=== PATIENT | male | born 1950 | race Caucasian/White ===

== ENCOUNTER → 2017-05-11 | Outpatient (CLI) | payer MEDICARE ==
[2017-05-11 14:02] LABS: Blood Urea Nitrogen 33 mg/dL (9-20); Non-African American GFR(MDRD) >60 (>60 ml/min/1.73 sqM)
--- NOTE | 2017-05-11 14:48 | CT ---
EXAMINATION TYPE: CT angio chest DATE OF EXAM: 05/11/2017 COMPARISON: PET/CT dated 08/25/2015. CT neck and chest dated 08/04/2016. HISTORY: cough and sob 1 week post op hernia repair. History of carcinoma of the tongue. CT DLP: 224.3 mGycm. Automated Exposure Control for Dose Reduction was Utilized. CONTRAST: CTA scan of the thorax is performed with IV Contrast, patient injected with 66 mL of Omnipaque 350, p ulmonary embolism protocol. MIP Images are created on CT scanner and reviewed. FINDINGS: LUNGS: Innumerable nodular opacities are seen throughout the lungs, most confluent within the lower l obes. These are surrounded by areas of groundglass opacity and interlobular septal thickening. The ri ght lung is slightly greater affected than the left. Within the consolidations in the posterior basil ar segments of both lungs pulmonary arteries run through these consolidations unaffected, and therefo re no mass is thought to be present within these areas. Additionally there are areas of low density t he numerous consolidations representing either nonenhancing areas of infection or necrosis. MEDIASTINUM: There is satisfactory enhancement of the pulmonary artery and its branches, there is no CT evidence for pulmonary embolism. Corresponding to the numerous consolidations there is mediastinal and hilar adenopathy with the largest conglomeration of lymph nodes seen in the right hilum measurin g 1.6 cm. OTHER: Numerous hypoattenuated hepatic lesions have developed in the interim with only a single hepat ic lesions seen on the prior exam of 08/04/2016. The lesion within the posterior medial right lobe of the liver previously measured approximate 3.7 cm on that examination and now measures up to 6.4 cm. When measured in a similar plane the low density left adrenal gland has not changed in size. A small gastroesophageal hiatal hernia and left paracentral bulge and diverticulum are seen. Small area of sc lerosis is seen at the superior endplate of T3, likely degenerative. Other mild degenerative changes are seen of the visualized thoracic spine. IMPRESSION: 1. Innumerable pulmonary nodular opacities throughout both lungs, with a lower lobe predominance. The se may represent infectious/inflammatory etiology or neoplastic etiology. Recommendation is for short -term follow-up after treatment. There is underlying concern for neoplasm as numerous hepatic masses have developed in the interim. These are incompletely characterized and dynamic contrast-enhanced CT (liver mass protocol) or MRI are recommended for further characterization. 2. Stable left adrenal nodule, which can be further assessed on the above recommended examination. A [place] message has been communicated to Magdi Woodson DO via the [employer] system on 05/11/2017 2:46 PM, Message ID [id number].
== END | disposition home or self-care (01) ==
LOC: RADCTMAIN 11:34
PROVIDERS: ATTEND Family Medicine
DX: R91.8 Other nonspecific abnormal finding of lung field (principal); R06.02 Shortness of breath; Z98.890 Other specified postprocedural states
CPT/HCPCS: 82565; 84520; 71275; 36415; Q9967

== ENCOUNTER → 2017-05-11 | Outpatient (CLI) | payer MEDICARE ==
--- NOTE | 2017-05-11 11:16 | XR ---
EXAMINATION TYPE: XR chest 2V DATE OF EXAM: 05/11/2017 COMPARISON: Nuclear medicine PET/CT 08/25/[address] chest 08/04/2016 HISTORY: Shortness of breath TECHNIQUE: Frontal and lateral views of the chest are obtained. FINDINGS: There is been interval development of bilateral basilar airspace disease, airspace disease also suspected right upper lobe. Prominent lung volumes may be indicative of underlying COPD. No leonor dent pneumothorax or pleural effusion. Cardiac mediastinal silhouette, pulmonary vascularity and jorge within normal limits. IMPRESSION: Correlate for pneumonia, consider aspiration. Follow-up is recommended. A Yellow message has been communicated to Magdi Woodson DO via the [employer] system on 05/11/2017 11:12 AM, Message ID [id number].
== END | disposition home or self-care (01) ==
LOC: RADXRYALE 10:00
PROVIDERS: ATTEND Family Medicine
DX: R06.02 Shortness of breath (principal)
CPT/HCPCS: 71020

== ENCOUNTER → 2017-06-02 | Outpatient (CLI) | payer MEDICARE ==
[2017-06-02 14:34] LABS: Blood Urea Nitrogen 25 mg/dL (9-20); Non-African American GFR(MDRD) >60 (>60 ml/min/1.73 sqM)
--- NOTE | 2017-06-02 16:29 | CT ---
EXAMINATION TYPE: CT chest abdomen w con DATE OF EXAM: 06/02/2017 INDICATION: Liver lesion, Pulmonary nodule, history of throat cancer COMPARISON: NONE CT DLP: 1190 mGycm CONTRAST: Performed without Oral Contrast and with IV Contrast, patient injected with 100 mL of Omnipaque 300. TECHNIQUE: Axial images at 5 mm thick sections. Reconstructed images in the coronal plane. Delayed images through the kidneys. FINDINGS: CT CHEST: Portion of the thyroid visualized is normal. There is a density in the anterior right upper lobe measuring 1.7 x 0.7 cm. Small pretracheal lymph n ode is present upper lobe. Series 3 image 22.There is a 1.3 x 0.8 cm nodular density in the periphery of the right posterior lateral left and right lung small nodules are present measuring 0.5 cm on the right and 0.7 cm left posterior lateral. Series 3 image 32. Bilateral posterior consolidations are present. This could be related to pulmonary fibrosis as well. Neoplasm is not excluded. Pneumonia should be considered. Multiple additional areas of pneumonitis ar e identified on the lung windows. No enlarged mediastinal or hilar adenopathy is evident. The ascending aorta diameter at the level of the main pulmonary artery is 3.4 cm. The main pulmonary artery diameter at the bifurcation is 2.5 cm. Coronary artery calcifications present. CT ABDOMEN: Liver: There is a 3.9 cm hypodensity within the right lobe liver measuring 15 Hounsfield units. Cyst is within the differential. A small daughter cyst measuring 0.9 cm posterior. There is a large irregu lar hypodense mass in the inferior right lobe liver measuring 6.5 cm. Underlying mass should be suspe cted. Additional hypodensities in the medial left lobe liver measuring 1.7 cm. Spleen: Normal Pancreas: Normal Adrenal glands: Left adrenal gland is thickened at 1.4 cm previous smaller than the comparison. Right adrenal gland appears normal Gallbladder: Normal Kidneys: No masses are evident. No hydronephrosis is present. Tiny cortical renal cysts on the post erior lateral left mid kidney. Delayed images were obtained through the kidneys, which remain unrema rkable. Aorta: Vascular calcification is within the aorta. There is minimal 2.4 cm distal fusiform prominenc e the distal abdominal aorta. Inferior vena cava: Normal. CT PELVIS: Loops of bowel within the abdomen and pelvis are normal. There are loops of bowel which are incom pletely distended or lack oral contrast limiting their evaluation. Appendix: Normal as visualized. IMPRESSIONS: 1. Lung nodules within the right upper lobe has diminished in size over the interval. The density con solidations in the right and left posterior lung base is likewise have diminished over the interval. 2. Hepatic hypodensities appear similar to prior study.
== END | disposition home or self-care (01) ==
LOC: RADCTMAIN 13:16
PROVIDERS: ATTEND Family Medicine
DX: J18.1 Lobar pneumonia, unspecified organism (principal); R91.8 Other nonspecific abnormal finding of lung field; K76.9 Liver disease, unspecified
CPT/HCPCS: 82565; 84520; 71260; 74160; 36415; Q9967

== ENCOUNTER → 2017-08-21 | Outpatient (CLI) | payer MEDICARE ==
--- NOTE | 2017-08-21 12:45 | CT ---
EXAMINATION TYPE: CT abdomen pelvis w con DATE OF EXAM: 08/21/2017 COMPARISON: 06/02/2017 HISTORY: Tongue CA, Lt leg muscle weakness CT DLP: 703.1 mGycm Automated exposure control for dose reduction was used. TECHNIQUE: Helical acquisition of images was performed from the lung bases through the pelvis. CONTRAST: Performed with Oral Contrast and with IV Contrast, patient injected with 100 mL of Omnipaque 300. FINDINGS: LUNG BASES: Bibasilar reticular opacities are seen dependently within the posterior basilar segment o f the lower lobes, more nodular and confluent on the left. These appear slightly improved in comparis on to the prior exam. 3 mm pulmonary nodules also seen within the right middle lobe on series 4 image 4. LIVER/GB: Enlarging hepatic masses suspicious for metastasis are seen within the right hepatic lobe t hat are multilobulated and centrally fluid attenuated indicative of necrosis with soft tissue compone nt of the mass within segment 8. This mass is increased in size previously measuring 3.9 cm and now m easuring 4.5 x 6.2 cm. Mass within the inferior right hepatic lobe in segments 5 and 6 is also enlarg ed measuring 6.5 cm on the prior examination currently measuring 8.1 x 7.8 cm. 4.9 cm left hepatic lo be lesion has also increased from the prior as it measured 1.7 cm. Additional lesion near the fissure for the falciform ligament within segment IVb has also enlarged now measuring 1.5 cm and previously subcentimeter. Punctate calculi are seen within the gallbladder body and neck. Necrotic adenopathy is seen within th e chiquis hepatis with the largest lymph node measuring 1.3 cm in short axis. PANCREAS: No significant abnormality is seen. SPLEEN: No significant abnormality is seen. ADRENALS: Stable left adrenal gland 1.4 cm nodule is noted. Right adrenal gland is unremarkable. KIDNEYS: Subcentimeter left lower pole renal cyst is unchanged. Otherwise kidneys enhance symmetrical ly without evidence of hydronephrosis. FREE AIR: No free air is visualized. ADENOPATHY: Centrally necrotic chiquis hepatis adenopathy as described above in addition to this there is an enlarged portacaval lymph nodes measuring 1.5 cm and 1.0 cm in short axis. Mesenteric implants versus prominent mesenteric lymph nodes are discussed in the mesentery section. URINARY BLADDER: No significant abnormality is seen. OSSEOUS STRUCTURES: 1.4 cm sclerotic lesion is seen of the T9 vertebral body and small area of scler osis within the S1 vertebral body that are suspicious for metastatic disease. Old fracture deformity of the right pelvic bone is noted. Mottled lytic and sclerotic lesion is seen of the left proximal fe mur with age indeterminate fracture of the lesser trochanter. Punctate sclerotic focus within the rig ht femur is thought to be related to benign bone island. Lastly sclerosis is seen within the issue tu berosity on the left, also appearing suspicious for metastasis. BOWEL: Bowel is nonenlarged. Numerous sigmoid diverticula and descending colonic diverticula are see n without pericolonic fat stranding. OTHER: Small hiatal hernia is incidentally noted. Again there is mild fusiform ectasia of the abdomin al aorta measuring up to 2.4 cm distally. Moderate ossific atheromatous changes and noncalcific ather omatous changes are seen of the abdominal aorta and its branches. MESENTERY: New mesenteric nodules are seen in the antimesenteric and mesenteric border of the hepatic flexure seen on series 3 image 34, 36 and 37 measuring up to 6 mm. Additional 6 mm nodular density i s seen on series 3 image 46 along the right hemicolon. These may represent lymph nodes or metastatic mesenteric implants. Another 2 nodular areas along the lateral conal fascia are seen on series 3 imag e 39 and 41. Within the pelvis there is another nodular area in the inguinal region on series 3 image 70. Scattered prominent lymph nodes are also seen in the the mesentery surrounding the sigmoid colon such as on series 3 image 62. IMPRESSION: 1. PROGRESSION OF METASTATIC DISEASE. ENLARGING HEPATIC MASSES MEASURING UP TO 8.1 CM WITH PERIPORTAL AND PORTACAVAL ADENOPATHY. 2. NUMEROUS SUSPICIOUS OSSEOUS LESIONS THAT ARE FAVORED TO RELATE TO METASTATIC FOCI WITH THE LARGEST IN THE PROXIMAL LEFT FEMUR RESULTING IN PATHOLOGIC FRACTURE OF INDETERMINATE AGE OF THE LESSER TUBER OSITY. 3. NUMEROUS MESENTERIC NODULES THAT MAY BE RELATED TO ADENOPATHY OR METASTATIC MESENTERIC INVOLVEMENT /IMPLANTS. GIVEN THE ABOVE CONSTELLATION OF FINDINGS THIS COULD RELATE TO THE PATIENT'S KNOWN HEAD AN D NECK CANCER, HOWEVER THIS WOULD BE MORE TYPICAL FOR COLON CANCER OF MUCINOUS TYPE OR LUNG CANCER. 4. STABLE LEFT ADRENAL GLAND NODULE.
== END | disposition home or self-care (01) ==
LOC: RADCTMAIN 09:53
PROVIDERS: ATTEND Family Medicine
DX: R16.0 Hepatomegaly, not elsewhere classified (principal); R59.0 Localized enlarged lymph nodes; E27.8 Other specified disorders of adrenal gland; C01 Malignant neoplasm of base of tongue; M62.81 Muscle weakness (generalized)
CPT/HCPCS: 74177; 36415; Q9967

== ENCOUNTER 2017-08-28 05:42 | Inpatient (IN) | payer MEDICARE ==
[2017-08-26 09:59] VITALS: BMI 21.9
[~2017-08-28 05:42] MED LIST: ACETAMINOPHEN TAB 500 MG TAB PO ONE; HYDROmorphone 0.5 MG/0.5 ML SYRINGE IVP PRN; LACTATED RINGERS 1,000 ML IV SCH; LIDOCAINE 1% 20 ML VIAL (10MG/ML) FOR IV START INTRADERMA PRN; MELOXICAM 7.5 MG TAB PO ONE; ONDANSETRON 4 MG/2 ML VIAL IVP ONE; TRANEXAMIC ACID 1,000 MG in SODIUM CHLORIDE 0.9% 100 ML IVPB ONE; ceFAZolin IN SWFI 2 GM/20 ML SYRINGE IVP ONE
[2017-08-28] MEDS ORDERED: MIDAZOLAM 2 MG/2 ML VIAL IVP ONE (07:03)
[2017-08-28] MEDS ORDERED: LIDOCAINE 1% INJ 10MG/ML (20 ML MDV) ONE (07:34)
[2017-08-28] MEDS ORDERED: MIDAZOLAM 2 MG/2 ML VIAL ONE (07:34)
[2017-08-28] MEDS ORDERED: HYDROmorphone (PF) 1 MG/ML ONE (07:34)
[2017-08-28] MEDS ORDERED: ePHEDrine SULFATE/0.9% NACL/PF 50 MG/5 ML SYRINGE IV ONE (07:34)
[2017-08-28] MEDS ORDERED: TRANEXAMIC ACID 1,000 MG/10 ML VIAL ONE (07:34)
[2017-08-28] MEDS ORDERED: fentaNYL (PF) 50 MCG/ML 2 ML AMP ONE (07:34)
[2017-08-28] MEDS ORDERED: PHENYLEPHRINE-0.9% NACL SYG 1 MG/10 ML SYRINGE ONE (07:34)
[2017-08-28] MEDS ORDERED: KETAMINE 10 MG/ML 20 ML VIAL ONE (07:34)
[2017-08-28] MEDS ORDERED: PROPOFOL 10 MG/ML 20 ML VIAL IV ONE (07:34)
[2017-08-28] MEDS ORDERED: SODIUM CHLORIDE 0.9% 100 ML BAG ONE (07:34)
[2017-08-28] MEDS ORDERED: LACTATED RINGERS 1,000 ML IV ONE (09:15)
[2017-08-28] MEDS ORDERED: HYDROmorphone 1 MG/ML 1 ML SYRINGE IVP PRN ×3 (09:30)
[2017-08-28] MEDS ORDERED: ONDANSETRON 4 MG/2 ML VIAL IVP PRN (09:30)
[2017-08-28] MEDS ORDERED: NALOXONE 0.4 MG/ML 1 ML VIAL IV PRN (09:30)
[2017-08-28] MEDS ORDERED: TEMAZEPAM 15 MG CAP PO PRN (09:30)
[2017-08-28] MEDS ORDERED: MAGNESIUM HYDROXIDE 2,400 MG/10 ML CUP PO PRN (09:30)
--- NOTE | 2017-08-28 09:43 | P.OP ---
Date of Procedure: 08/28/17 Procedure(s) Performed: PREOPERATIVE DIAGNOSIS: Left proximal femur impending fracture secondary to metastatic cancer POSTOPERATIVE DIAGNOSIS: Left proximal femur impending fracture secondary to metastatic cancer OPERATION: 1. Left femur prophylactic intramedullary nailing using long Synthes IT nail. 2. Bone biopsy SUPERVISOR AUDIT [employer]ERKS: Shelly Villaseñor PA-C (assistance with: Patient positioning, retraction, exposure, reduction, fixation, irrigation, hemostasis, closure, dressing) ANESTHESIA: General ESTIMATED BLOOD LOSS: 200 mL. SPECIMENS REMOVED: None COMPLICATIONS: None OPERATIVE FINDINGS: See below INDICATIONS: Mr. Redmond is a 67-year-old male with a history of remote throat cancer and a lesion in his left proximal femur consistent with metastatic cancer. A computed tomography scan has shown a small fracture involving the lesser trochanter, and there is a moth-eaten appearance on the posteromedial aspect of the proximal femur around the lesser trochanter region. I have recommended prophylactic femoral intramedullary rodding after consultation with Dr. West. The plan is also to obtain a bone biopsy from the reamings. The patient wishes to proceed with the operation after explanation of the steps of the procedure as well as potential risks and complications. These have been explained as being inclusive of, but not limited to: Bleeding, infection, scarring, discomfort, blood vessel and/or nerve damage, blood clot, pulmonary embolism, need for further surgery, gait disturbance, , and other risks. The consent form has been authorized. PROCEDURE: After appropriate consent was obtained, the patient was taken to the operating room and placed in supine position. Spinal anesthetic was administered and after confirmation of adequate anesthesia, the patient was carefully placed in the supine position on the operating room table in the fracture table. The patient was placed up against a well-padded peroneal post. Care was taken to make sure about that all pressure points were adequately padded. The affected leg was placed in boot traction and the unaffected leg was placed in a well leg chadwick. Gentle longitudinal traction was used to stabilize the limb. The thigh was prepped and draped in the usual aseptic fashion using ChloraPrep. Ioban drape was used for the case and the patient received intravenous antibiotics prior to incision. The incision was then created with a #10 blade just proximal to the greater trochanter laterally. It was carried down through skin into the subcutaneous tissues and through fascia. Hemostasis was obtained using electrocautery. The tip of the greater trochanter was palpated and a guide pin was placed at the tip and directed into the femoral shaft as assessed with C-arm imaging. Once optimal pin position had been obtained, a 16 mm reamer was used over the guide pin to create a path for the IT nail. Reamings were removed from the reamer and sent for pathological analysis. These reamings appeared suspicious for metastatic cancer. In addition, a long curet was used inside the medullary canal to take a bone sample from the interior of the lesser trochanter . A long IT nail was selected and measurements were taken for size of nail. A long guide pin was then placed into the medullary canal of the femur and reaming was performed to size 13 mm. IT nail selected was assembled to the insertion jig on the back table and bushings were checked for accuracy. The nail was then inserted using gentle mallet taps until it was fully deployed. The amount of rotation of the implant was assessed based on the amount of anteversion of the femoral neck. This was rotated to match the patient's femoral neck anteversion and the helical blade guide was placed through the insertion jig and through an incision on the lateral side of the thigh more distal than the first. Once this guide was placed against the lateral cortex of the femur, a guide pin was drilled into the central region of the femoral head and neck as based on AP and lateral C-arm imaging. Once optimal pin position had been obtained, the guidewire was measured and appropriately sized helical blade was selected. The path for the helical blade was prepared using a tapered reamer. The helical blade was then inserted using gentle mallet taps along the guidewire until it was fully deployed. There was no evidence of iatrogenic fracture during this step. The anti-rotation screw was locked down and the insertion apparatus for the helical blade was removed. The guide pin was then removed. Traction was then removed from the leg and the distal interlock was placed using standard freehand technique. Finally, the insertion jig for the nail was removed and final C-arm images were taken and saved in both AP and lateral planes. The final x-rays showed satisfactory positioning of the implant. The top of the nail was plugged with a small quantity of bone wax and the incisions were then thoroughly irrigated with normal saline. Final hemostasis was obtained using electrocautery and closure of the fascia was performed using 0-Vicryl suture. 2- 0 Vicryl suture was used in the subcutaneous tissues and heron were used for the skin. Sterile dressing was then applied and the patient was carefully removed from the fracture table frame and placed onto the stretcher. The patient tolerated the procedure well. There were no complications and approximately 200 mL of blood loss. The patient was then subsequently transferred to recovery room in stable condition. Sponge and needle counts were correct.
[2017-08-28] MEDS ORDERED: HYDROmorphone 0.5 MG/0.5 ML SYRINGE IVP PRN ×3 (09:48→09:49)
[2017-08-28 10:09] LABS: Basophils % (A) 0 %; CH 27.9; CHCM 32.2; Eosinophils # (A) 0.1 k/uL (0-0.7); Eosinophils % (A) 1 %; HCT 35.8 % (39.0-53.0); HDW 2.47; HGB 11.4 gm/dL (13.0-17.5); Luc # (Auto) 0.14; Luc % (Auto) 1; Lymphocytes # (A) 0.8 k/uL (1.0-4.8); Lymphocytes % (A) 7 %; MCH 27.6 pg (25.0-35.0); MCHC 31.7 g/dL (31.0-37.0); MCV 86.9 fL (80.0-100.0); Monocytes # (A) 0.8 k/uL (0-1.0); Monocytes % (A) 7 %; Neutrophils # (A) 8.8 k/uL (1.3-7.7); Neutrophils % (A) 83 %; RBC 4.13 m/uL (4.30-5.90); RDW 13.9 % (11.5-15.5); WBC 10.6 k/uL (3.8-10.6)
[2017-08-28] MEDS ORDERED: hydrALAZINE HCL 20 MG/ML 1 ML VIAL IVP ONE (10:10)
--- NOTE | 2017-08-28 10:53 | XR ---
Limited left femur HISTORY: Fracture 5 intraoperative C-arm images document the procedure
--- NOTE | 2017-08-28 10:54 | FL ---
Fluoroscopy HISTORY: Hip fracture 1.57 minutes fluoroscopy time supplied to the referring clinician. 5 intraoperative C-arm images doc ument the procedure. See dictated report from orthopedic surgery.
[2017-08-28] MEDS: LACTATED RINGERS 1,000 ML IV SCH ×2 (13:03→19:35)
[2017-08-28] MEDS: HYDROcodone/APAP 5-325MG 1 EACH TAB PO PRN ×2 (13:12→22:40)
--- NOTE | 2017-08-28 15:31 | P.CONS ---
History of Present Illness - Reason for Consult Pathological fracture, metastatic esophageal cancer - History of Present Illness Patient was admitted for impending left proximal femoral impending fracture, pathological secondary to metastatic esophageal cancer. Patient at this point of time has no pain patient denied any fever, chills, nausea, vomiting, abdominal pain. Review of Systems REVIEW OF SYSTEMS: CONSTITUTIONAL: No fever, no malaise, no fatigue. HEENT: No recent visual problems or hearing problems. Denied any sore throat. CARDIOVASCULAR: No chest pain, orthopnea, PND, no palpitations, no syncope. PULMONARY: No shortness of breath, no cough, no hemoptysis. GASTROINTESTINAL: No diarrhea, no nausea, no vomiting, no abdominal pain. Normoactive bowel sounds. NEUROLOGICAL: No headaches, no weakness, no numbness. HEMATOLOGICAL: Denies any bleeding or petechiae. GENITOURINARY: Denies any burning micturition, frequency, or urgency. MUSCULOSKELETAL/RHEUMATOLOGICAL: As mentioned in HPI ENDOCRINE: Denies any polyuria or polydipsia. The rest of the 14-point review of systems is negative. Past Medical History Past Medical History: Cancer, Hypertension, Thyroid Disorder Additional Past Medical History / Comment(s): THROAT CANCER WITH METS TO BONES. CHRONIC CONSTIPATION History of Any Multi-Drug Resistant Organisms: None Reported Past Surgical History: Adenoidectomy, Heart Catheterization, Hernia Repair, Tonsillectomy Additional Past Surgical History / Comment(s): ORIF RT ARM Past Anesthesia/Blood Transfusion Reactions: No Reported Reaction Smoking Status: Former smoker - Past Family History Sister(s) Family Medical History: Cancer Medications and Allergies Home Medications Medication Instructions Recorded Confirmed Type Atorvastatin [Lipitor] 20 mg PO DAILY 08/26/17 08/28/17 History Cholecalciferol [Vitamin D3] 1,000 unit PO DAILY 08/26/17 08/28/17 History HYDROcodone/APAP 7.5-325MG [Crestone 1 tab PO BID PRN 08/26/17 08/28/17 History 7.5-325] Levothyroxine Sodium [Synthroid] 100 mcg PO DAILY 08/26/17 08/28/17 History Sennosides [Senna] 8.6 mg PO DAILY 08/26/17 08/28/17 History Vitamin E 100 unit PO DAILY 08/26/17 08/28/17 History HYDROcodone/APAP 5-325MG [Crestone 1 - 2 each PO Q4-6H PRN #90 tab 08/28/17 Rx 5-325] Sennosides-Docusate Sodium 1 tab PO BID #60 tablet 08/28/17 Rx [Senokot-S] Allergies Allergy/AdvReac Type Severity Reaction Status Date / Time No Known Allergies Allergy Verified 08/28/17 10:22 Physical Exam Vitals: Vital Signs Temp Pulse Resp BP Pulse Ox 08/28/17 10:25 81 16 135/67 94 L 08/28/17 10:10 85 16 193/104 93 L 08/28/17 09:55 79 16 173/94 95 08/28/17 09:40 82 16 173/94 92 L 08/28/17 09:25 99.4 F 86 12 169/106 92 L 08/28/17 07:04 93 L 08/28/17 06:10 98.3 F 87 18 183/95 94 L Intake and Output 08/28/17 08/28/17 08/28/17 06:59 14:59 22:59 Intake Total 300 900 Output Total 350 Balance 300 550 Intake: IV 300 900 Output: Estimated Blood Loss 350 PHYSICAL EXAMINATION: GENERAL: The patient is alert and oriented x3, not in any acute distress. Well developed, well nourished. HEENT: Pupils are round and equally reacting to light. EOMI. No scleral icterus. No conjunctival pallor. Normocephalic, atraumatic. No pharyngeal erythema. No thyromegaly. CARDIOVASCULAR: S1 and S2 present. No murmurs, rubs, or gallops. PULMONARY: Chest is clear to auscultation, no wheezing or crackles. ABDOMEN: Soft, nontender, nondistended, normoactive bowel sounds. No palpable organomegaly. MUSCULOSKELETAL: Deferred to orthopedic surgery EXTREMITIES: No cyanosis, clubbing, or pedal edema. NEUROLOGICAL: Gross neurological examination did not reveal any focal deficits. SKIN: No rashes. Results CBC & Chem 7: 08/28/17 09:50 Labs: Abnormal Lab Results - Last 24 Hours (Table) 08/28/17 Range/Units 09:50 RBC 4.13 L (4.30-5.90) m/uL Hgb 11.4 L (13.0-17.5) gm/dL Hct 35.8 L (39.0-53.0) % Neutrophils # 8.8 H (1.3-7.7) k/uL Lymphocytes # 0.8 L (1.0-4.8) k/uL Assessment and Plan Plan: #1 pathological fracture of the left proximal femur: Patient is status post surgical intervention pain management and DVT prophylaxis as per primary service. #2 esophageal cancer: Further management as an outpatient. #3 hepatitis and continue with levothyroxine #4 hypertension: Monitor blood pressure patient is not on any anti-hypertensive medications at this point of time. #5 hyperlipidemia continue with atorvastatin
[2017-08-28] MEDS: ceFAZolin IN SWFI 2 GM/20 ML SYRINGE IVP SCH ×2 (17:34→23:30)
--- NOTE | 2017-08-28 17:43 | P.CONS ---
History of Present Illness - Reason for Consult Consult date: 08/28/17 metastatic malignancy. History of head and neck cancer - History of Present Illness The patient is a 67-year-old white male, well known to our service. He had presented with a mass in the left neck in 04/24, and was subsequently evaluated by ENT. 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 He was treated with chemoradiation, with cisplatin use as the chemotherapy arm. He completed treatment in 09/24. He was thenplaced on surveillance and scans with no evidence of recurrence, until 08/28. CT scans on 08/21/17 revealed evidence of liver lesions, multiple osseous metastasis, with specifically an advanced appearance in the left proximal femur that was felt to be high risk for impending fracture. he patient was thus referred to orthopedic surgery,for open reduction and internal fixation, for purposes of stabilization, as well as tissue diagnosis. He underwent surgery today. The colon lesion was suspicious for metastatic cancer Consult was placed for further evaluation. Review of Systems Constitutional: Reports chronic pain, Reports fatigue Eyes: denies blurred vision, denies pain Ears: deny: decreased hearing, ear discharge, earache, tinnitus Ears, nose, mouth and throat: Reports as per HPI Cardiovascular: Denies chest pain, Denies shortness of breath Respiratory: Denies cough Gastrointestinal: Denies abdominal pain, Denies diarrhea, Denies nausea, Denies vomiting Musculoskeletal: Reports as per HPI Musculoskeletal: left: hip pain Integumentary: Denies pruritus, Denies rash Neurological: Reports weakness Psychiatric: Denies anxiety, Denies depression Endocrine: Denies fatigue, Denies weight change Hematologic/Lymphatic: Reports as per HPI Past Medical History Past Medical History: Cancer, Hypertension, Thyroid Disorder Additional Past Medical History / Comment(s): THROAT CANCER WITH METS TO BONES. CHRONIC CONSTIPATION History of Any Multi-Drug Resistant Organisms: None Reported Past Surgical History: Adenoidectomy, Heart Catheterization, Hernia Repair, Tonsillectomy Additional Past Surgical History / Comment(s): ORIF RT ARM Past Anesthesia/Blood Transfusion Reactions: No Reported Reaction Smoking Status: Former smoker - Past Family History Sister(s) Family Medical History: Cancer Medications and Allergies Home Medications Medication Instructions Recorded Confirmed Type Atorvastatin [Lipitor] 20 mg PO DAILY 08/26/17 08/28/17 History Cholecalciferol [Vitamin D3] 1,000 unit PO DAILY 08/26/17 08/28/17 History HYDROcodone/APAP 7.5-325MG [[place] 1 tab PO BID PRN 08/26/17 08/28/17 History 7.5-325] Levothyroxine Sodium [Synthroid] 100 mcg PO DAILY 08/26/17 08/28/17 History Sennosides [Senna] 8.6 mg PO DAILY 08/26/17 08/28/17 History Vitamin E 100 unit PO DAILY 08/26/17 08/28/17 History HYDROcodone/APAP 5-325MG [[place] 1 - 2 each PO Q4-6H PRN #90 tab 08/28/17 Rx 5-325] Sennosides-Docusate Sodium 1 tab PO BID #60 tablet 08/28/17 Rx [Senokot-S] Allergies Allergy/AdvReac Type Severity Reaction Status Date / Time No Known Allergies Allergy Verified 08/28/17 10:22 Physical Exam Vitals: Vital Signs Temp Pulse Resp BP Pulse Ox 08/28/17 15:00 98 F 102 H 18 105/68 92 L 08/28/17 12:10 96/64 08/28/17 12:00 90 18 106/66 94 L 08/28/17 11:40 97.9 F 94 18 118/72 95 08/28/17 10:25 81 16 135/67 94 L 08/28/17 10:10 85 16 193/104 93 L 08/28/17 09:55 79 16 173/94 95 08/28/17 09:40 82 16 173/94 92 L 08/28/17 09:25 99.4 F 86 12 169/106 92 L 08/28/17 07:04 93 L 08/28/17 06:10 98.3 F 87 18 183/95 94 L Intake and Output 08/28/17 08/28/17 08/28/17 06:59 14:59 22:59 Intake Total 300 900 Output Total 350 Balance 300 550 Intake: IV 300 900 Output: Estimated Blood Loss 350 - Constitutional General appearance: no acute distress - EENT Eyes: EOMI, PERRLA ENT: hearing grossly normal, normal oropharynx - Neck Neck: no lymphadenopathy Thyroid: bilateral: normal size - Respiratory Respiratory: bilateral: CTA - Cardiovascular Rhythm: regular Heart sounds: normal: S1, S2 - Gastrointestinal General gastrointestinal: normal bowel sounds, soft - Integumentary Integumentary: normal - Neurologic Neurologic: CNII-XII intact - Musculoskeletal Musculoskeletal: generalized weakness, left sided weakness (Left lower extremity weakness, due to surgery) - Psychiatric Psychiatric: A&O x's 3, appropriate affect Results CBC & Chem 7: 08/28/17 09:50 Labs: Abnormal Lab Results - Last 24 Hours (Table) 08/28/17 Range/Units 09:50 RBC 4.13 L (4.30-5.90) m/uL Hgb 11.4 L (13.0-17.5) gm/dL Hct 35.8 L (39.0-53.0) % Neutrophils # 8.8 H (1.3-7.7) k/uL Lymphocytes # 0.8 L (1.0-4.8) k/uL Assessment and Plan (1) Pathologic femoral fracture Narrative/Plan: The patient has recently presented with evidence of metastatic malignancy, and increasing pain in the left hip area. As noted, there was an advanced lesion in the proximal left femur. The patient therefore underwent open reduction and internal fixation, with appearance quite suspicious for metastatic disease. So far there appeared to be no obvious complications. Defer to orthopedic surgery for postsurgical management. The patient is felt to be at increased risk for postoperative venous thrombus embolism, due to the nature of the surgery as well as metastatic malignancy. I will check with the orthopedic service, as to when anticoagulation can be started. Using Xarelto or Eliquis at the postop prophylactic doses for about 6 weeks would be reasonable. sales engineer account manager was asked to check for coverage The patient will be referred to radiation oncology as an outpatient, for postop radiation. Current Visit: Yes Status: Acute Code(s): M84.453A - PATHOLOGICAL FRACTURE, UNSP FEMUR, INIT ENCNTR FOR FRACTURE SNOMED Code(s): 387390281 (2) Metastatic cancer Narrative/Plan: The patient has a known history of cancer of the base of the tongue with treatment as described. He Is now presenting with widespread metastatic disease. Metastatic recurrence versus other primary are both possibilities. Reamings have been sent for pathology. Await those results, to decide specific treatment plan Current Visit: Yes Status: Acute Code(s): C79.9 - SECONDARY MALIGNANT NEOPLASM OF UNSPECIFIED SITE SNOMED Code(s): 229244035
[2017-08-28] MEDS: SENNOSIDES-DOCUSATE SODIUM 1 EACH TAB PO SCH (21:07)
[2017-08-29] MEDS: LACTATED RINGERS 1,000 ML IV SCH ×2 (03:50→13:37)
[2017-08-29] MEDS: LEVOTHYROXINE 100 MCG TAB PO SCH (07:00)
[2017-08-29 09:45] LABS: CH 27.7; CHCM 31.6; HCT 32.6 % (39.0-53.0); HDW 2.29; HGB 10.4 gm/dL (13.0-17.5); MCH 28.3 pg (25.0-35.0); MCV 88.2 fL (80.0-100.0); Mean Platelet Volume 7.4; RBC 3.69 m/uL (4.30-5.90); RDW 15.4 % (11.5-15.5); WBC 13.7 k/uL (3.8-10.6)
[2017-08-29] MEDS: SENNOSIDES 8.6 MG TAB PO SCH (09:48)
[2017-08-29 09:58] LABS: ALT 31 U/L (21-72); AST 59 U/L (17-59); Alkaline Phosphatase 175 U/L (38-126); Anion Gap 7 mmol/L; Blood Urea Nitrogen 17 mg/dL (9-20); Calcium 9.5 mg/dL (8.4-10.2); Carbon Dioxide 27 mmol/L (22-30); Chloride 100 mmol/L (98-107); Glucose 150 mg/dL (74-99); Non-African American GFR(MDRD) >60 (>60 ml/min/1.73 sqM); Potassium 4.2 mmol/L (3.5-5.1); Sodium 134 mmol/L (137-145); Total Bilirubin 0.5 mg/dL (0.2-1.3); Total Protein 6.6 g/dL (6.3-8.2)
--- NOTE | 2017-08-29 10:04 | XR ---
EXAMINATION TYPE: XR chest 1V DATE OF EXAM: 08/29/2017 HISTORY: sob. REFERENCE: NONE. FINDINGS: The heart is not enlarged. There is mild vascular congestion. There is platelike atelectasi s at the left lung base. There is a questionable infiltrate at the right lung base. Pleural spaces ap pear clear. IMPRESSION: 1. ATELECTATIC CHANGE, LEFT LUNG BASE. 2. INFILTRATE, RIGHT LUNG BASE. 3. VASCULAR CONGESTION WITHOUT PULMONARY EDEMA.
--- NOTE | 2017-08-29 11:44 | P.PN ---
Subjective Patient was admitted for pathological fracture of the left femoral neck. Patient a short of breath and patient was desaturating obtain a chest x-ray which showed pulmonary edema, ordered echocardiogram, brain natriuretic peptide and the patient was started on IV Lasix repeat electrolytes and kidney function tomorrow. Constitutional: Denied any fatigue denied any fever. Cardio vascular: denied any chest pain, palpitations Gastrointestinal denied any nausea vomiting Pulmonary: Denied any shortness of breath cough Neurologic denied any new focal deficits Objective - Vital Signs Vital signs: Vital Signs Temp 98.1 F 08/29/17 07:39 Pulse 90 08/29/17 07:39 Resp 16 08/29/17 10:28 BP 175/93 08/29/17 07:39 Pulse Ox 93 L 08/29/17 09:25 Intake & Output 08/28/17 08/29/17 08/29/17 18:59 06:59 18:59 Intake Total 1900 2040 Output Total 975 500 500 Balance 925 1540 -500 Weight 69.4 kg Intake: IV 900 Intake, IV Titration 400 1200 Amount Lactated Ringers 1,000 ml 400 1200 @ 100 mls/hr IV .Q10H [facility] Rx#:[id number] Oral 600 840 Output: Urine 625 500 500 Estimated Blood Loss 350 Other: Voiding Method Urinal # Voids 2 - Exam PHYSICAL EXAMINATION: GENERAL: The patient is alert and oriented x3, not in any acute distress. Well developed, well nourished. HEENT: Pupils are round and equally reacting to light. EOMI. No scleral icterus. No conjunctival pallor. Normocephalic, atraumatic. No pharyngeal erythema. No thyromegaly. CARDIOVASCULAR: S1 and S2 present. No murmurs, rubs, or gallops. PULMONARY: Chest is clear to auscultation, no wheezing or crackles. ABDOMEN: Soft, nontender, nondistended, normoactive bowel sounds. No palpable organomegaly. MUSCULOSKELETAL: Deferred to orthopedic surgery EXTREMITIES: No cyanosis, clubbing, or pedal edema. NEUROLOGICAL: Gross neurological examination did not reveal any focal deficits. SKIN: No rashes. - Labs CBC & Chem 7: 08/29/17 09:35 08/29/17 09:35 Labs: Abnormal Lab Results - Last 24 Hours (Table) 08/29/17 08/29/17 Range/Units 09:35 09:35 WBC 13.7 H (3.8-10.6) k/uL RBC 3.69 L (4.30-5.90) m/uL Hgb 10.4 L (13.0-17.5) gm/dL Hct 32.6 L (39.0-53.0) % Sodium 134 L (137-145) mmol/L Glucose 150 H (74-99) mg/dL Alkaline Phosphatase 175 H (38-126) U/L Albumin 3.3 L (3.5-5.0) g/dL Assessment and Plan Plan: #1 pathological fracture of the left proximal femur: Patient is status post surgical intervention pain management and patient will be started on anticoagulation. #2 esophageal cancer: Further management as an outpatient. #3 hepatitis and continue with levothyroxine #4 hypertension: Monitor blood pressure patient is not on any anti-hypertensive medications at this point of time. #5 hyperlipidemia continue with atorvastatin #6 pulmonary edema: Workup as mentioned above IV Lasix 40 mg twice a day and kidney function monitoring.
[2017-08-29] MEDS: FUROSEMIDE 10 MG/ML 4 ML VIAL IV SCH ×2 (11:58→20:40)
[2017-08-29] MEDS: ATORVASTATIN 20 MG TAB PO SCH (11:58)
--- NOTE | 2017-08-29 15:32 | PN ---
PROGRESS NOTE DATE OF SERVICE: 08/29/17 CHIEF COMPLAINT: Left hip pain. INTERVAL HISTORY: Yonas is seen today as a follow up. He has some left hip pain and some swelling of his legs, overall he is doing very well and recovering from his surgery yesterday. He is ambulating better. PHYSICAL EXAMINATION: On physical examination, he is alert and oriented times three. Does not appear to be in any distress. Vital signs: Temperature 98.1, afebrile. Pulse is 90 and regular. Respiratory rate 16. Blood pressure 175/95. HEENT: Normocephalic. Atraumatic. Lungs: Clear to auscultation. Heart is regular rate and rhythm. Abdomen is soft. Extremities: Trace edema. LABORATORY DATA: WBC 13.7, hemoglobin 10.4, hematocrit 32.6, platelet 146, sodium 134, potassium 4.2, chloride 100, CO2 27, BUN 17, creatinine 0.9. IMPRESSION: 1. Metastatic carcinoma, possibly recurrent from previous history of head and neck carcinoma. The patient just recently underwent open reduction and internal fixation of pending pathologic fracture of the left femur. 2. History of head and neck carcinoma. This is suspected recurrent disease, certainly other primaries cannot be excluded. RECOMMENDATIONS: 1. Continue postoperative care. 2. The patient will require palliative radiation therapy to the left femur in two weeks after postoperatively. 3. Postoperative deep vein thrombosis prophylaxis. 4. We are awaiting pathology report from his recent surgery, reaming had been sent out, once radiation therapy completed and based on pathologic finding, further decision in regard to systemic therapy will be made. 5. I asked the patient and his to give me a call next week, hopefully he will be home by next week, then we can set up radiation therapy in the outpatient setting. MMODL / IJN: [id number] /
[2017-08-29] MEDS ORDERED: RIVAROXABAN 15 MG TAB PO SCH (17:30)
--- NOTE | 2017-08-29 19:06 | P.PN ---
Subjective Progress Note Date: 08/29/17 Principal diagnosis: Left proximal femur impending fracture secondary to metastatic cancer Patient is seen at bedside this morning. He is postop day #1 from a left IT nail insertion. He has pain at the surgical site as expected but denies any new complaints. He denies numbness, tingling or calf pain. Review of systems is negative for fever, chills, chest pain, shortness of breath or other Objective - Vital Signs Vital signs: Vital Signs Temp 98.5 F 08/29/17 15:00 Pulse 105 H 08/29/17 15:00 Resp 16 08/29/17 15:00 BP 101/67 08/29/17 15:00 Pulse Ox 91 L 08/29/17 15:00 Intake & Output 08/29/17 08/29/17 08/30/17 06:59 18:59 06:59 Intake Total 2040 800 Output Total 500 500 Balance 1540 300 Weight 69.4 kg Intake: Intake, IV Titration 1200 800 Amount Lactated Ringers 1,000 ml 1200 800 @ 100 mls/hr IV .Q10H [facility] Rx#:[id number] Oral 840 Output: Urine 500 500 Other: Voiding Method Urinal # Voids 2 - Exam Inspection reveals a benign surgical wounds. There is no active bleeding or drainage. Neurovascular status is intact throughout the lower extremity with motor and sensation fully intact. Calf is soft and nontender. 2+ dorsalis pedis pulse and less than 2 second cap refill is present. - Constitutional General appearance: Present: no acute distress - Psychiatric Psychiatric: Present: A&O x's 3, appropriate affect, intact judgment & insight - Labs CBC & Chem 7: 08/29/17 09:35 08/29/17 09:35 Labs: Abnormal Lab Results - Last 24 Hours (Table) 08/29/17 08/29/17 Range/Units 09:35 09:35 WBC 13.7 H (3.8-10.6) k/uL RBC 3.69 L (4.30-5.90) m/uL Hgb 10.4 L (13.0-17.5) gm/dL Hct 32.6 L (39.0-53.0) % Sodium 134 L (137-145) mmol/L Glucose 150 H (74-99) mg/dL Alkaline Phosphatase 175 H (38-126) U/L Albumin 3.3 L (3.5-5.0) g/dL Assessment and Plan (1) Pathologic femoral fracture Narrative/Plan: He will continue with routine postop orthopedic protocol including pain management, wound care, physical therapy, DVT prophylaxis and medical management. Expect that hhe will discharge to home tomorrow, Thursday if ok with IM Current Visit: Yes Status: Acute Priority: Medium Code(s): M84.453A - PATHOLOGICAL FRACTURE, UNSP FEMUR, INIT ENCNTR FOR FRACTURE SNOMED Code(s): 772879265 Time with Patient: Less than 30
[2017-08-29] MEDS: SENNOSIDES-DOCUSATE SODIUM 1 EACH TAB PO SCH (20:40)
[2017-08-29 23:21] VITALS: RESP 18
[2017-08-30] MEDS: LACTATED RINGERS 1,000 ML IV SCH (01:06)
[2017-08-30] MEDS: HYDROcodone/APAP 5-325MG 1 EACH TAB PO PRN ×2 (03:06→14:20)
[2017-08-30] MEDS: LEVOTHYROXINE 100 MCG TAB PO SCH (06:01)
[2017-08-30 07:01] LABS: Basophils # (A) 0.1 k/uL (0-0.2); Basophils % (A) 1 %; CH 27.5; CHCM 31.7; Eosinophils # (A) 0.3 k/uL (0-0.7); Eosinophils % (A) 3 %; HCT 34.7 % (39.0-53.0); HDW 2.31; HGB 11.1 gm/dL (13.0-17.5); Luc # (Auto) 0.08; Luc % (Auto) 1; Lymphocytes # (A) 0.5 k/uL (1.0-4.8); Lymphocytes % (A) 5 %; MCH 27.7 pg (25.0-35.0); MCHC 31.9 g/dL (31.0-37.0); Monocytes # (A) 0.7 k/uL (0-1.0); Monocytes % (A) 7 %; Neutrophils # (A) 9.2 k/uL (1.3-7.7); Neutrophils % (A) 84 %; RBC 3.99 m/uL (4.30-5.90); RDW 15.2 % (11.5-15.5); WBC 10.9 k/uL (3.8-10.6); WBC (Perox) 11.01
[2017-08-30 07:15] LABS: Anion Gap 9 mmol/L; Blood Urea Nitrogen 15 mg/dL (9-20); Calcium 9.6 mg/dL (8.4-10.2); Carbon Dioxide 29 mmol/L (22-30); Chloride 98 mmol/L (98-107); Glucose 106 mg/dL (74-99); Non-African American GFR(MDRD) >60 (>60 ml/min/1.73 sqM); Potassium 3.6 mmol/L (3.5-5.1); Sodium 136 mmol/L (137-145)
[2017-08-30 08:19] VITALS: BP 115/95; PULSE 86; TEMP 97.9
--- NOTE | 2017-08-30 08:29 | ECHOF ---
Referral Reason:pul edema MEASUREMENTS -------- HEIGHT: 182.9 cm WEIGHT: 69.4 kg BP: 175/93 RVIDd: 4.0 cm (< 3.3) IVSd: 0.8 cm (0.6 - 1.1) LVIDd: 4.5 cm (3.9 - 5.3) LVPWd: 0.9 cm (0.6 - 1.1) IVSs: 1.4 cm LVIDs: 2.1 cm LVPWs: 1.5 cm Ao Diam: 3.3 cm (2.0 - 3.7) AV Cusp: 1.9 cm (1.5 - 2.6) LA Diam: 3.4 cm (2.7 - 3.8) MV E Justin: 0.90 m/s MV DecT: 116 ms MV A Justin: 1.20 m/s MV E/A Ratio: 0.74 RAP: 5.00 mmHg RVSP: 9.13 mmHg FINDINGS -------- Resting tachycardia (HR>100bpm). This was a technically difficult study with suboptimal views. The left ventricular size is normal. Left ventricular wall thickness is normal. Overall left vent ricular systolic function is low-normal with, an EF between 50 - 55 %. The right ventricle is moderately enlarged. The left atrium is normal in size. The right atrium is normal in size. 1.5mg of Definity was utilized for enhancement of images Aortic valve is trileaflet and is mildly thickened. The mitral valve leaflets are mildly thickened. There is trace mitral regurgitation. Trace tricuspid regurgitation present. The right ventricular systolic pressure, as measured by Dopp ler, is 9.13mmHg. The pulmonic valve was not well visualized. CONCLUSIONS -------- 1. Resting tachycardia (HR>100bpm). 2. This was a technically difficult study with suboptimal views. 3. The left ventricular size is normal. 4. Left ventricular wall thickness is normal. 5. Overall left ventricular systolic function is low-normal with, an EF between 50 - 55 %. 6. The right ventricle is moderately enlarged. 7. The left atrium is normal in size. 8. The right atrium is normal in size. 9. 1.5mg of Definity was utilized for enhancement of images 10. Aortic valve is trileaflet and is mildly thickened. 11. The mitral valve leaflets are mildly thickened. 12. There is trace mitral regurgitation. 13. Trace tricuspid regurgitation present. 14. The right ventricular systolic pressure, as measured by Doppler, is 9.13mmHg. 15. The pulmonic valve was not well visualized. BINDERY LIBRARY TECHNICAL ASSISTANT: Shelly Felix RDCS
[2017-08-30] MEDS: ATORVASTATIN 20 MG TAB PO SCH (08:39)
[2017-08-30] MEDS: SENNOSIDES 8.6 MG TAB PO SCH (08:39)
[2017-08-30] MEDS: FUROSEMIDE 10 MG/ML 4 ML VIAL IV SCH (08:39)
--- NOTE | 2017-08-30 10:11 | P.PN ---
Subjective Patient was admitted for pathological fracture of the left femoral neck. Patient a short of breath and patient was desaturating obtain a chest x-ray which showed pulmonary edema, ordered echocardiogram, brain natriuretic peptide and the patient was started on IV Lasix repeat electrolytes and kidney function tomorrow. 08/30/2017 Patient doesn't have any congestive heart failure exacerbation patient had some pulmonary edema secondary to IV fluids he received during and post surgery and patient is clinically doing well we'll taper down the arms and and the patient is saturating well without oxygen and patient can be discharged from medical perspective will not require Lasix. Prescription for anti-correlation was provided. Constitutional: Denied any fatigue denied any fever. Cardio vascular: denied any chest pain, palpitations Gastrointestinal denied any nausea vomiting Pulmonary: Denied any shortness of breath cough Neurologic denied any new focal deficits Objective - Vital Signs Vital signs: Vital Signs Temp 97.9 F 08/30/17 07:00 Pulse 86 08/30/17 07:00 Resp 18 08/30/17 07:00 BP 115/95 08/30/17 07:00 Pulse Ox 98 08/30/17 07:00 Intake & Output 08/29/17 08/30/17 08/30/17 18:59 06:59 18:59 Intake Total 800 1990 Output Total 500 1300 300 Balance 300 690 -300 Weight 69.4 kg Intake: Intake, IV Titration 800 560 Amount Lactated Ringers 1,000 ml 800 560 @ 100 mls/hr IV .Q10H [facility] Rx#:[id number] Oral 1430 Output: Urine 500 1300 300 Other: Voiding Method Urinal Urinal Urinal # Voids 2 1 - Exam PHYSICAL EXAMINATION: GENERAL: The patient is alert and oriented x3, not in any acute distress. Well developed, well nourished. HEENT: Pupils are round and equally reacting to light. EOMI. No scleral icterus. No conjunctival pallor. Normocephalic, atraumatic. No pharyngeal erythema. No thyromegaly. CARDIOVASCULAR: S1 and S2 present. No murmurs, rubs, or gallops. PULMONARY: Chest is clear to auscultation, no wheezing or crackles. ABDOMEN: Soft, nontender, nondistended, normoactive bowel sounds. No palpable organomegaly. MUSCULOSKELETAL: Deferred to orthopedic surgery EXTREMITIES: No cyanosis, clubbing, or pedal edema. NEUROLOGICAL: Gross neurological examination did not reveal any focal deficits. SKIN: No rashes. - Labs CBC & Chem 7: 08/30/17 05:59 08/30/17 05:59 Labs: Abnormal Lab Results - Last 24 Hours (Table) 08/30/17 08/30/17 Range/Units 05:59 05:59 WBC 10.9 H (3.8-10.6) k/uL RBC 3.99 L (4.30-5.90) m/uL Hgb 11.1 L (13.0-17.5) gm/dL Hct 34.7 L (39.0-53.0) % Neutrophils # 9.2 H (1.3-7.7) k/uL Lymphocytes # 0.5 L (1.0-4.8) k/uL Sodium 136 L (137-145) mmol/L Glucose 106 H (74-99) mg/dL Assessment and Plan Plan: #1 pathological fracture of the left proximal femur: Patient is status post surgical intervention pain management and patient He is on anticoagulation. #2 esophageal cancer: Further management as an outpatient. #3 hepatitis and continue with levothyroxine #4 hypertension: #5 hyperlipidemia continue with atorvastatin #6 pulmonary edema: Improved now and patient can be discharged from medical perspective
--- NOTE | 2017-08-30 12:32 | P.DS ---
Providers Date of admission: 08/28/17 05:42 Expected date of discharge: 08/30/17 Attending physician: Isiah Gaston Consults: 08/28/17 09:30 Consult Physician Routine Consulting Provider: Jonny West Consult Reason/Comments: medical management/anticoagulation Do you want consulting provider notified?: Yes 08/28/17 09:39 Consult Physician Routine Consulting Provider: Yessi Ortiz Consult Reason/Comments: medical management Do you want consulting provider notified?: Yes Primary care physician: Magdi Woodson - Discharge Diagnosis(es) (1) Pathologic femoral fracture Patient was admitted to the OR on 08/28/17 to undergo left IT nail insertion. He underwent the above procedure which he tolerated well without complication. Postoperative hospital course has remained without complication. On day of discharge he is afebrile, vital signs stable, labs within acceptable ranges, tolerating by mouth meds and diet, voiding without difficulty, positive flatus, denies abdominal pain or calf pain, pain is controlled on oral pain medication and has no new complaints. Wound is benign, neurovascular status is intact, calf is soft and nontender, abdomen soft and nontender. Review of systems is negative for numbness, tingling, fever, chills, chest pain, shortness breath, nausea, vomiting, dizziness, headaches, slurred speech or other. Current Visit: Yes Status: Acute Priority: Medium Procedures: IT nail left hip Patient Condition at Discharge: Good Plan - Discharge Summary Discharge Rx Participant: Yes New Discharge Prescriptions: New HYDROcodone/APAP 5-325MG [[place] 5-325] 1 - 2 each PO Q4-6H PRN #90 tab PRN Reason: Pain Sennosides-Docusate Sodium [Senokot-S] 1 tab PO BID #60 tablet Aspirin 325 mg PO BID #60 tab No Action Levothyroxine Sodium [Synthroid] 100 mcg PO DAILY HYDROcodone/APAP 7.5-325MG [[place] 7.5-325] 1 tab PO BID PRN PRN Reason: Pain Cholecalciferol [Vitamin D3] 1,000 unit PO DAILY Atorvastatin [Lipitor] 20 mg PO DAILY Vitamin E 100 unit PO DAILY Sennosides [Senna] 8.6 mg PO DAILY Discharge Medication List Atorvastatin [Lipitor] 20 mg PO DAILY 08/26/17 [History] Cholecalciferol [Vitamin D3] 1,000 unit PO DAILY 08/26/17 [History] HYDROcodone/APAP 7.5-325MG [[place] 7.5-325] 1 tab PO BID PRN 08/26/17 [History] Levothyroxine Sodium [Synthroid] 100 mcg PO DAILY 08/26/17 [History] Sennosides [Senna] 8.6 mg PO DAILY 08/26/17 [History] Vitamin E 100 unit PO DAILY 08/26/17 [History] HYDROcodone/APAP 5-325MG [[place] 5-325] 1 - 2 each PO Q4-6H PRN #90 tab 08/28/17 [Rx] Sennosides-Docusate Sodium [Senokot-S] 1 tab PO BID #60 tablet 08/28/17 [Rx] Aspirin 325 mg PO BID #60 tab 08/30/17 [Rx] Follow up Appointment(s)/Referral(s): Isiah Gaston MD [STAFF PHYSICIAN] - 2 Weeks Activity/Diet/Wound Care/Special Instructions: May shower after 2 days if no drainage. May bear weight as tolerated with walker. Medical to manage anticoagulation. Discharge Disposition: HOME WITH HOME HEALTH SERVICES
== END 2017-08-30 14:48 | disposition home health service (06) | DRG 478 ==
LOC: 2ORMAIN 05:42 → 5ONC 09:25
PROVIDERS: ADMIT Orthopaedic Surgery; ATTEND Orthopaedic Surgery
PROC: 0QB70ZX Excision of Left Upper Femur, Open Approach, Diagnostic (ICD-10-PCS; 2017-08-28)
PROC: 0QH904Z Insertion of Internal Fixation Device into Left Femoral Shaft, Open Approach (ICD-10-PCS; principal; 2017-08-28 07:15)
DX: M84.452A Pathological fracture, left femur, initial encounter for fracture (principal); C15.9 Malignant neoplasm of esophagus, unspecified; J81.1 Chronic pulmonary edema; C79.51 Secondary malignant neoplasm of bone; I10 Essential (primary) hypertension; K59.09 Other constipation; E78.5 Hyperlipidemia, unspecified; Z85.818 Personal history of malignant neoplasm of other sites of lip, oral cavity, and pharynx; Z79.899 Other long term (current) drug therapy; Z79.891 Long term (current) use of opiate analgesic; Z87.19 Personal history of other diseases of the digestive system; Z82.49 Family history of ischemic heart disease and other diseases of the circulatory system; Z87.891 Personal history of nicotine dependence; Z90.49 Acquired absence of other specified parts of digestive tract; Z85.810 Personal history of malignant neoplasm of tongue
CPT/HCPCS: 71010; 80048; 80053; 83880; 85025; 85027; 88304; 88311; 88341; 88342; 93306